=== PATIENT | female | born 1990 | race African-American/Black ===

== ENCOUNTER 2016-08-11 07:55 | Observation (INO) ==
[2016-08-11] MEDS ORDERED: PROMETHAZINE 25 MG/1 ML VIAL IM STA (08:42)
[2016-08-11] MEDS ORDERED: diphenhydrAMINE 50 MG/1 ML VIAL IM STA (08:42)
[2016-08-11] MEDS ORDERED: HYDROmorphone 2 MG/1 ML VIAL IM STA (08:42)
[2016-08-11] MEDS ORDERED: diphenhydrAMINE 50 MG/1 ML VIAL ONE (08:45)
[2016-08-11] MEDS ORDERED: HYDROmorphone 2 MG/1 ML VIAL ONE ×2 (08:45→09:27)
[2016-08-11] MEDS ORDERED: PROMETHAZINE 25 MG/1 ML VIAL ONE (08:45)
--- NOTE | 2016-08-11 08:50 | Emergency Department Note ---
Charlene Rosales Brittany, am scribing for, and in the presence of, See Wheeler MD 08: 46. Summer Rosales James D, MD, personally performed the services described in this documentation, ascribed by Livia Chang in my presence, and it is both accurate and complete 850 . Arrival - Arrival Chief Complaint: Headache Stated Complaint: head pain ED Nursing Triage Note: was seen here for h/a yesterday. told to come back to er this am to have an mri. pt has paperwork that says come through er. Mode of Arrival: Ambulatory Limitations: No Limitations Source: Patient - History of Present Illness HPI Narrative: This is a 26 y/o black female,who presents to the ED with c/o COFFMAN which started 4 days ago. She reports the pain is a throbbing type of pain. She denies a fever or chills but notes photophobia. 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 She reports she was written an RX for Phenergan and Fioricet. Pt has no other complaints/pain in the ED at this time. Pt denies a PMHx. Pt denies a surgical Hx. Pt denies a family medical Hx. Pt denies a social Hx. Onset (ago): day(s) (Started 4 days) Consistency: constant Severity: moderate Date of Last Menstrual Period: beginning of july Allergies/Adverse Reactions: Allergies Allergy/AdvReac Type Severity Reaction Status Date / Time Amoxicillin AdvReac Unknown/Unable Verified 08/10/16 09:59 to obtain Home Medications: Home Medications Medication Instructions Recorded Confirmed Type Butalb/Acetaminophen/Caffeine 1 each PO Q6HR PRN #20 capsule 01/10/16 Rx [Fioricet 50-300-40 mg Capsule] Butalbital/Acet/Caff 50-325-40 1 tablet PO Q6H PRN #20 tablet 08/10/16 Rx [Fioricet 50-325-40 mg Tablet] Promethazine HCl [Phenergan] 25 mg PO Q6HR PRN #20 tablet 03/26/17 Rx Review of System - Review of System 12 point system: reviewed and no additional remarkable complaints except as stated - Review of System Constitutional: Absent: chills, fever Eyes: Present: other (Photophobia) Neurological: Present: headache Medical,Surgical,& Family Hx - Social History Smoking Status: Never smoker Exam Vital Signs: Vital Signs Temperature 98.0 F 08/11/16 08:32 Pulse Rate 72 08/11/16 08:32 Respiratory Rate 18 08/11/16 08:32 Blood Pressure 113/60 08/11/16 08:32 O2 Sat by Pulse Oximetry 97 08/11/16 08:01 GENERAL: This is a well-nourished well-developed black female in no apparent distress. VITAL SIGNS: Reviewed HEENT: Head is atraumatic and normocephalic. Pupils are equal round react to light. Extraocular movements are intact. Oropharynx is benign with moist mucous membranes. NECK: Neck is soft and supple without tenderness. There are no masses. There is no lymphadenopathy. LUNGS: Lungs are clear to auscultation. Chest rises symmetrically. There is no chest wall tenderness. CV: Heart is regular rate and rhythm without murmurs rubs or gallops. ABDOMEN: Abdomen is soft, nontender to palpation. There are no abdominal abnormal masses palpated. There is no organomegaly. Bowel sounds are present and active. SKIN: Skin is warm and dry. No rash. EXTREMITIES: Patient has full range of motion without tenderness. There is no pedal edema. NEUROLOGIC: Awake alert and oriented 4. Cranial nerves II through XII are grossly intact. Motor is 5 over 5 in all extremities bilaterally. Deep tendon reflexes are 2+ and bilaterally equal. Course - Consultations Consultation #1: Discussed with hospitalist. Patient will be admitted to their service for intractable migraine. Time: 12:14 Results - Diagnostic Findings Procedure: CT: report reviewed by me (CT head: Performed yesterday reviewed, patient has cerebellar ectopia. This is not an acute event.) Disposition Clinical Impression: Headache Case discussed with: patient Disposition: Disch To Home/Self Care Condition: Stable Additional Instructions: Patient will need elective outpatient MRI of the head. I have explained to her that MRI of the head is not performed electively through the emergency department. Time of Disposition: 08:56
[2016-08-11] MEDS ORDERED: HYDROmorphone 2 MG/1 ML VIAL IV STA (09:32)
[2016-08-11] MEDS ORDERED: SODIUM CHLORIDE 0.9% 1,000 ML IV STA (09:56)
[2016-08-11] MEDS ORDERED: ACETAMINOPHEN 325 MG TABLET PO PRN (12:48)
[2016-08-11] MEDS ORDERED: ONDANSETRON 4 MG/2 ML VIAL IV PRN (12:48)
[2016-08-11] MEDS ORDERED: MEPERIDINE 50 MG/1 ML VIAL IV PRN (12:58)
[2016-08-11] MEDS ORDERED: PROMETHAZINE 25 MG/1 ML VIAL IM PRN (12:58)
[2016-08-11] MEDS ORDERED: KETOROLAC 15 MG/1 ML VIAL IV PRN (12:59)
[2016-08-11] MEDS ORDERED: SODIUM CHLORIDE 0.9% 1,000 ML IV SCH (13:00)
[2016-08-11] MEDS ORDERED: BUTALBITAL/ACETAMIN/CAFFEINE 50-325-40 MG TABLET PO PRN (14:30)
[2016-08-11] MEDS ORDERED: LORazepam 2 MG/1 ML VIAL IV ONE (15:00)
--- NOTE | 2016-08-11 15:14 | Hospitalist History & Physical ---
<BernaWolfgang - Last Filed: 08/11/16 15:06> Assessment and Plan - Time spent with patient Time spent with patient: Greater than 30 minutes (1) Headache Status: Acute Assessment and plan: Intractable headache. Will admit for outpatient observation. Will obtain MRI Current Visit: No (2) Hypertension Status: Acute Assessment and plan: This may be secondary to pain. Will attempt to control patient's pain and monitor BP. Will add antihypertensive agents as necessary. Current Visit: Yes History of Present Illness Chief complaint: Headache History of present illness: Ms. Castelan is a 26 year old female with no significant past medical history who presents to the ED with complaints of headache since Thursday. She reports that this is an intractable headache, throbbing. She does appear to be photosensitive however she denies fever chills and pain of any other type. She reported that she has experienced migraines before approximately 2 years ago, however, they only lasted for "a day or so". She reports that this particular headache started on Thursday at which time she took an Aleve and slept "all day ". She reports that she came to the ER yesterday with the same complaint and was seen in non-urgent care. She had a CT of the head done at that time which showed suspected cerebellar tonsillar ectopia. She was given a prescription for Phenergan and Fioricet, sent home and told to return to the ER at 0600 today for an MRI. Patient will be admitted for overnight observation and an MRI will be obtained. She denies any significant history, however her blood pressure is 159/128 at the time of exam today. Home Medications Medication Instructions Recorded Confirmed Type No Known Home Medications [No 08/11/16 08/11/16 History Known Home Medications] Allergies Allergy/AdvReac Type Severity Reaction Status Date / Time Amoxicillin AdvReac Unknown/Unable Verified 08/10/16 09:59 to obtain Medical,Surgical,& Family Hx - Medical History Musculoskeletal: No history of: Amputation Reproductive: Comment Only: Reproductive Problems (2 c sections that went well) - Surgical History Reproductive Surgeries: Surgical HX of;: Section - Family History Family History: Reports;: Family Hypertension (sister, grandmother) Denies;: Family Cancer, Family Diabetes, Family Heart Disease, Family Stroke - Social History Smoking Status: Never smoker Frequency of Alcohol Use: None Type of Drug Use: None Marital Status: Single Lives With:: Significant Other Functional capacity: independent ambulation - Constitutional Constitutional: Present: daytime sleepiness, headache(s), weakness - EENT Eyes: Present: blurry vision. Absent: diplopia Ears: Absent: decreased hearing, ear pain Nose, mouth and throat: Present: headache(s). Absent: neck pain, sinus pressure , vertigo - Cardiovascular Cardiovascular: Absent: chest pain at rest, dyspnea, lightheadedness - Respiratory Respiratory: Absent: cough, dyspnea - Gastrointestinal Gastrointestinal: Absent: abdominal pain, change in bowel habits - Genitourinary Genitourinary: Absent: difficulty urinating, flank pain - Musculoskeletal Musculoskeletal: Absent: arthralgias, back pain - Neurological Neurological: Present: dizziness (reports immediately feeling dizzy once she was given IV dilaudid). Absent: abnormal gait, abnormal speech - Psychiatric Psychiatric: Absent: anxiety, auditory hallucinations - Endocrine Endocrine: Present: fatigue. Absent: cold intolerance, heat intolerance - Hematologic/Lymphatic Hematologic/Lymphatic: Absent: easy bleeding, easy bruising Exam - Constitutional Vitals: Period Temp Pulse Resp BP Sys/Meehan Pulse Ox Last 24 Hr 98.4 F 65 18-61 115-133/66-87 98-100 Exam: General appearance: obese, no acute distress - Head Head exam: Present: normocephalic, atraumatic - Eye Eye exam: Present: EOMI. Absent: conjunctival injection, nystagmus Pupils: Present: ANJEL, normal accommodation - ENT ENT exam: Present: normal exam, normal external ear exam - Neck Neck exam: Present: normal inspection. Absent: lymphadenopathy, tenderness, thyromegaly - Respiratory Respiratory exam: Present: clear to auscultation bilaterally. Absent: rales, rhonchi, wheezes - Cardiovascular Cardiovascular exam: Present: regular rate and rhythm. Absent: carotid bruit, gallop, rubs - GI/Abdominal GI/Abdominal exam: Present: normal bowel sounds. Absent: ascites, distended, mass - Extremities Exam Extremities exam: Present: normal inspection, normal capillary refill. Absent: edema - Back Exam Back exam: Absent: CVA tenderness (L), CVA tenderness (R) - Neurological Exam Neurological exam: Present: alert, oriented X3 - Psychiatric Psychiatric exam: Present: normal affect, normal mood - Skin Skin exam: Present: normal color, warm, dry <White,Estrella R - Last Filed: 08/11/16 18:54> Assessment and Plan (1) Migraine Status: Acute Assessment and plan: demerol, phenergan and toradol, Dr Nicole to see Current Visit: Yes (2) Hypertension Status: Acute Assessment and plan: monitor Current Visit: Yes (3) Cerebellar tonsillar ectopia Status: Acute Assessment and plan: noted on MRI probably present at Current Visit: No (4) ALEX (obstructive sleep apnea) Status: Acute Assessment and plan: trying to lose weight, High risk for sleep apnea. Current Visit: Yes History of Present Illness History of present illness: Ms. Castelan is a 26 year old female seen and examined. Migraine bilateral temporal lobes sensitive to light and sound since . Patient seen and examined. Hospital course reviewed and edited. Medical,Surgical,& Family Hx - Medical History Neurology: History of: Migraine Respiratory: No history of: Obstructive Sleep Apnea Exam - Constitutional Vitals: Period Temp Pulse Resp BP Sys/Meehan Pulse Ox Last 24 Hr 98.4 F 65 18-61 115-133/66-87 98-100 Results - Diagnostic Findings Procedure: MRI: report reviewed by me (cerebellar tonsil below foramen mag, genetics, prominent vein no mass )
[2016-08-11] MEDS ORDERED: ALPRAZolam 0.5 MG TABLET PO ONE (15:30)
[2016-08-11] MEDS ORDERED: ZIPRASIDONE 20 MG/1 ML VIAL IM ONE (15:53)
--- NOTE | 2016-08-11 15:55 | Neurology Consult Note ---
History of Present Illness History of present illness: Ms. Castelan is a 26 year old right-handed -[place] lady with no significant past medical history except occasional sinus headache who presents to the ED with complaints of headache since Thursday. She reports that this is an intractable headache, throbbing incorrect. She does appear to be photosensitive however she denies fever chills and pain of any other type. She reported that she has experienced migraines before approximately 2 years ago, however, they only lasted for "a day or so". She reports that this particular headache started on Thursday at which time she took an Aleve and slept "all day ". She reports that she came to the ER yesterday with the same complaint and was seen in non-urgent care. She had a CT of the head done at that time which showed suspected cerebellar tonsillar ectopia. She was given a prescription for Phenergan and Fioricet, sent home and told to return to the ER at 0600 today for an MRI. Patient got admitted for overnight observation and an MRI . She denies any significant history, however her blood pressure was 159/128 in the ER but is normal now. Home Medications Medication Instructions Recorded Confirmed Type No Known Home Medications [No 08/11/16 08/11/16 History Known Home Medications] Allergies Allergy/AdvReac Type Severity Reaction Status Date / Time Amoxicillin AdvReac Unknown/Unable Verified 08/10/16 09:59 to obtain 12 point system: reviewed and no additional remarkable complaints except as stated Medical,Surgical,& Family Hx - Medical History Musculoskeletal: No history of: Amputation Reproductive: Comment Only: Reproductive Problems (2 c sections that went well) - Surgical History Reproductive Surgeries: Surgical HX of;: Section - Family History Family History: Reports;: Family Hypertension (sister, grandmother) Denies;: Family Cancer, Family Diabetes, Family Heart Disease, Family Stroke - Social History Smoking Status: Never smoker Frequency of Alcohol Use: None Type of Drug Use: None Exam - Constitutional Vitals: Period Temp Pulse Resp BP Sys/Meehan Pulse Ox Last 24 Hr 98.4 F 65 18-61 115-133/66-87 98-100 Exam: GENERAL: Patient is in no acute distress. NECK: Neck is supple. There is no JVD. No carotid bruits present. No thyroid masses. CVS: First and second heart sounds are normal. There is no S3 present. Regular rate and rhythm. RESPIRATORY: Lungs are clear to auscultation without any rales or rhonchi. ABDOMEN: Soft and non-tender. Bowel sounds are present. There is no hepatosplenomegaly. EXT: There is no palpable edema. Peripheral pulses are present. Skin: No rashes Central Nervous system: General: Alert, awake and Oriented x 3 Speech: Fluent Comprehension: Intact and normal Facial expressions: Normal Cranial Nerves: CN1/Olfactory: Normal CN II/ Optic: Normal, Visual [place] unreliable CN III, and : ANJEL & EOMI CN V: Normal & intact CN VII: face is symmetric CNVIII: Normal CN XI/X/XI/XII: Intact and Normal Motor: Bulk and Tone is normal. Strength in the right 5/5 Strength in the left 5/5 Sensory: Grossly intact for all the modalities of PP, LT and temp sense Reflexes: 1+ and symmetrical Cerebellar function: Normal finger to nose and heel to spring testing. Toes: Equivocal Gait: Normal heel to heel and toe to toe and tandem walk. Assessment and Plan (1) Migraine Status: Acute Assessment and plan: Geodon 20 mg IM 1 dose now Thorazine 25 mg IV 1 dose HS Agree with MRI of the brain Avoid triptan at this time since she had significant hypertension earlier. Thank you for the consult Current Visit: Yes
--- NOTE | 2016-08-11 17:34 | Magnetic Resonance Report ---
Referring physician: Estrella Bustos Exam: MRI brain with and without contrast Date: August 11, 2016 Comparison: CT brain without contrast August 10, 2016 Reason: Migraine, headache The patient is an inpatient who was admitted on August 11, 2016. Technique: MRI of the brain was performed with and without the use of 20 cc of IV Dotarem contrast. Obtained precontrast images include sagittal T1, axial diffusion-weighted, axial FLAIR, axial T2, axial gradient and axial T1 sequences. Postcontrast sequences include axial, sagittal and coronal T1 sequences. A 1.5 Roxana magnet was used. Findings: No hydrocephalus or midline shift is present. There is no evidence of recent intracranial hemorrhage, abnormal mass effect or acute infarction. No suspicious intracranial enhancement is seen. Major vascular flow voids are visualized. There is a oval 1.2 x 1.1 x 0.8 cm diffusely enhancing structure at the posterior left skull base, adjacent to the left posterior arch of C1. This likely represents a nonspecific prominent vascular structure such as a prominent draining vein. A nerve sheath tumor is difficult to exclude but is thought less likely. The orbits, sella and brainstem are unremarkable. The cerebellar tonsils extend slightly below the foramen magnum (0.4 cm). There is mild scattered fluid within the right mastoid air cells. The left mastoid air cells and paranasal sinuses appear clear. Impression: 1. No acute intracranial process is identified. 2. The cerebral tonsils extend slightly below the foramen magnum (0.4 cm). 3. Mild scattered fluid within the right mastoid air cells. 4. There is an oval 1.2 x 1.1 x 0.8 cm enhancing structure adjacent to the left posterior arch of C1. This likely represents a prominent vascular structure such as a prominent draining vein. PROCEDURE INTERPRETED AT [facility] DEPARTMENT OF RADIOLOGY Final Report Signed by: Dr. Sonia Polk
[2016-08-11] MEDS ORDERED: chlorproMAZINE INJ 25 MG in SODIUM CHLORIDE 0.9% 100 ML IV ONE (21:00)
[2016-08-12] MEDS ORDERED: PANTOPRAZOLE 40 MG TABLET PO SCH (09:00)
[2016-08-12] MEDS ORDERED: DIVALPROEX 500 MG TABLET PO SCH (09:30)
[2016-08-12 11:42] VITALS: BP 111/51
--- NOTE | 2016-08-12 12:47 | Discharge Summary ---
Hospital Course - Hospital Course Hospital Course: 26-year-old morbidly obese female presents multiple times to the emergency room with complaints of headaches not improved with Fioricet. 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 MRI of her brain shows low lying cerebellar tonsillar probably present since . No other mass noted on MRI. Dr. Nicole was consulted. He recommended Geodon and Thorazine to abort her headaches. She obtains relief but then quickly has the headache returned. There is no evidence to suggest hypertension. Patient has some of the symptoms of obstructive sleep apnea and I am concerned that this may be contributing to her headaches. I will set her up to see Dr. Juana Gayle for a sleep evaluation. I have started her on Depakote. She is already had her tubes tied so she cannot get . We will use [place] for breakthrough pain. I would like her to follow-up with Dr. Nicole in 1 week as I am concerned that her Depakote may need to be titrated up. Discharged home today. - Time spent with patient Time with patient DS: Less than 30 minutes (20 min) Diagnosis - Discharge Diagnosis (1) Migraine Status: Acute (2) Hypertension Status: Acute (3) Cerebellar tonsillar ectopia Status: Acute (4) ALEX (obstructive sleep apnea) Status: Acute Discharge Plan - Discharge Data Disposition: Disch To Home/Self Care Condition at Discharge: Stable Discharge Diet: low fat, low cholesterol Activity: resume usual activities as tolerated Hygiene: no restrictions Weight Bearing at Discharge: full weight bearing Driving: no restrictions - Discharge Medications New Divalproex [Depakote] 500 mg PO BID #60 tablet HYDROcodone/ACETAMIN 10-325 [[place] 10-325] 1 tablet PO Q4H #30 tablet - Follow Up or Referral Follow Up: James Nicole MD [Physician] - 1 Week Juana Gayle MD [Physician] - 2 Weeks - Forms/Instructions Additional Discharge Instructions: Patient has been in the hospital from 08/11 and 08/12 due to migraines. 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 We are requesting a transfer to a part of the line which does not have intense bright lights. Exam - Constitutional Vitals: Period Temp Pulse Resp BP Sys/Meehan Pulse Ox Last 24 Hr 97.7 F-98.9 F 19-77 18-61 109-133/51-87 94-100 General appearance: no acute distress, morbidly obese - Respiratory Respiratory exam: Present: clear to auscultation bilaterally. Absent: rhonchi, wheezes - Cardiovascular Cardiovascular exam: Present: regular rate and rhythm. Absent: systolic murmur - GI/Abdominal GI/Abdominal exam: Present: normal bowel sounds, soft. Absent: tenderness Discharge Results Labs on day of discharge: Labs from last 24 hours 08/11/16 16:11 POC Creatinine 0.68 POC Estimated GFR (eGFR) > 60 DS: Provider Date of admission: 08/11/16 12:46 Primary care physician: . No PCP Attending physician on admission: Estrella Bustos MD Consults: 08/11/16 12:48 Consult to Physician [CONS] Routine Comment: intractible headache Consulting Provider: James Nicole 08/11/16 14:38 Consult to Dietitian [CONS] Routine Reason for Dietitian: Other Consult Comment: admisson 08/11/16 15:32 Consult to Sleep Center [CONS] Routine Reason for Sleep Center: Sleep Center Physician Consult Comment: at risk for sleep apnea Discharging clinician: Estrella Bustos MD
== END 2016-08-12 14:50 | disposition home or self-care (01) ==
LOC: N.ED 07:55 → N.EDINP 07:55 → N.2E 14:23
PROVIDERS: ADMIT Internal Medicine; ATTEND Internal Medicine